=== PATIENT | female | born 1950 | race Caucasian/White ===

== ENCOUNTER → 2016-06-12 | Outpatient (CLI) | payer OTHER ==
[~2016-06-12] MED LIST: ASPI-391 PO; CALC-279 PO; CHOL100027 PO; CLR10 PO; DVN/160 PO; GLUC15002 PO; HYDR25TA4 PO; MELA3TAB12 PO; NSNN50; NXM/40 PO; OMEG1200 PO; SERT1TAB68 PO; ZINC50TA3 PO
[2016-06-12 12:25] LABS: ALT/SGPT 35 U/L (12-78); AST/SGOT 21 U/L (15-37); BLOOD UREA NITROGEN 15 mg/dl (7-18); CALCIUM 8.9 mg/dl (8.5-10.1); CARBON DIOXIDE 27 mmol/L (21-32); CHLORIDE 105 mmol/L (98-107); GLUCOSE 102 mg/dl (70-99); POTASSIUM 3.7 mmol/L (3.5-5.1); SODIUM 142 mmol/L (136-145)
[2016-06-12 12:33] LABS: ALKALINE PHOSPHATASE 87 U/L (45-117); CHOLESTEROL 142 mg/dl (0-200); CHOLESTEROL/HDL RATIO 2.4; HDL CHOLESTEROL 60 mg/dl; LDL CHOLESTEROL CALCULATED 60 mg/dl; TRIGLYCERIDES 112 mg/dl (0-150); VERY LOW DENSITY LIPOPROT CALC 22 mg/dl
--- NOTE | 2016-06-18 13:39 | CODING QUERY MEDICAL NECESSITY ---
SUPPORTING DIAGNOSIS NEEDED A supporting diagnosis is required for the test/procedure performed on this patient in order for us to be reimbursed by the patient's insurance. Please provide a supporting diagnosis for the following test/procedure listed below next to the test name along with your signature. *If there is no additional diagnosis for this patient that would support the following test/procedure please document that below next to the test/procedure. Test(s)/Procedure(s) that require a supporting diagnosis: * VITAMIN B-12 LEVEL DIAGNOSIS: * DOS: 06/12/16 Provider Signature: Date: Thank you Magdalena [facility] Once completed, please kindly fax back to [phone] For questions please call [phone]
== END | disposition home or self-care (01) ==
LOC: C.LAB1850 11:06
PROVIDERS: ATTEND Internal Medicine
DX: E78.5 Hyperlipidemia, unspecified (principal); R68.89 Other general symptoms and signs

== ENCOUNTER → 2016-11-14 | Outpatient (CLI) | payer OTHER | END | disposition home or self-care (01) | LOC: C.MAMM 08:58 | PROVIDERS: ATTEND Internal Medicine | DX: M85.852 Other specified disorders of bone density and structure, left thigh (principal) ==

== ENCOUNTER → 2016-11-22 | Outpatient (CLI) | payer OTHER ==
--- NOTE | 2016-11-22 14:31 | MAMMOGRAPHY REPORT ---
BILATERAL DIGITAL SCREENING MAMMOGRAM WITH CAD: 11/22/2016 CLINICAL HISTORY: Routine screening. TECHNIQUE: Current study was also evaluated with a Computer Aided Detection (CAD) system. Bilateral CC and MLO views were obtained. COMPARISON: Comparison is made to exams dated: 11/21/2015 mammogram, 11/18/2014 mammogram, 11/17/2013 m ammogram, 11/10/2012 mammogram, 11/06/2011 mammogram, and 10/15/2010 mammogram - [facility]. BREAST COMPOSITION: There are scattered areas of fibroglandular density in both breasts. FINDINGS: No suspicious masses, calcifications, or areas of architectural distortion are noted in ei ther breast. There has been no significant interval change compared to prior exams. IMPRESSION: ACR BI-RADS CATEGORY 1: NEGATIVE There is no mammographic evidence of malignancy. A 1 year screening mammogram is recommended. The pa tient will receive written notification of the results. Approximately 10% of breast cancers are not detected with mammography. A negative mammographic report should not delay biopsy if a clinically suggestive mass is present. Sadaf Carson M.D. ah/:11/22/2016 11:01:14 End Stapler: Aleksey Byrd RT(R)(M), [facility] letter sent: Normal 1/2 BI-RADS Code: ACR BI-RADS Category 1: Negative
== END | disposition home or self-care (01) ==
LOC: C.MAMM 10:20
PROVIDERS: ATTEND Internal Medicine
DX: Z12.31 Encounter for screening mammogram for malignant neoplasm of breast (principal)

== ENCOUNTER → 2017-03-05 | Outpatient (CLI) | payer OTHER ==
[2017-03-05 16:24] LABS: ALT/SGPT 29 U/L (12-78); AST/SGOT 18 U/L (15-37); BLOOD UREA NITROGEN 11 mg/dl (7-18); BUN/CREATININE RATIO 11.3 (10-20); CALCIUM 9.2 mg/dl (8.5-10.1); CARBON DIOXIDE 29 mmol/L (21-32); CHLORIDE 104 mmol/L (98-107); CREATININE 0.99 mg/dl (0.60-1.20); GLUCOSE 99 mg/dl (70-99); MAGNESIUM 2.3 mg/dl (1.8-2.4); POTASSIUM 3.5 mmol/L (3.5-5.1); SODIUM 138 mmol/L (136-145)
[2017-03-05 16:35] LABS: ALB/GLOB RATIO 0.9 (0.9-2); ALKALINE PHOSPHATASE 97 U/L (45-117)
== END | disposition home or self-care (01) ==
LOC: C.LAB1850 14:54
PROVIDERS: ATTEND Internal Medicine
DX: I10 Essential (primary) hypertension (principal); R68.89 Other general symptoms and signs

== ENCOUNTER → 2017-04-03 | Outpatient (CLI) | payer OTHER ==
--- NOTE | 2017-04-03 12:49 | DIAGNOSTIC IMAGING REPORT ---
L KNEE 3 VIEWS CLINICAL HISTORY: M25.562 Left knee [id number] COMPARISON: None. DISCUSSION: The bones and joint spaces appear intact. There is no evidence of fracture, dislocation or bony disease. There is no evidence for soft tissue swelling. IMPRESSION: Negative study. The above report was generated using voice recognition software. It may contain grammatical, syntax or spelling errors. Electronically signed by: Lui Martins M.D. 04/03/2017 12:47 PM Dictated Date/Time: 04/03/2017 12:29 PM
== END | disposition home or self-care (01) ==
LOC: C.RAD1850 12:17
PROVIDERS: ATTEND Nurse Practitioner Adult Health
DX: M25.562 Pain in left knee (principal)

== ENCOUNTER → 2017-10-30 | Day surgery (SDC) | payer OTHER ==
[2017-10-23 08:25] VITALS: Ht 154.9 cm; Wt 97.7 kg
[~2017-10-30] VITALS: Ht 154.9 cm; Wt 97.7 kg
[~2017-10-30] MED LIST changes: +ACET300T3 PO; +ATOR-22 PO; +CYAN500T13 PO; +CYCL10TA6 PO; +FLUT50SP45 NAE; +LIDOCAINE HCL 2% 2 ML VIAL (20MG/ML) ONE; -MELA3TAB12 PO; +MELA5CAP PO; +MELO7.5T5 PO; +MULT-506 PO; -NSNN50; -NXM/40 PO; +OMEP-331 PO; +PROPOFOL IV EMULSION 10 MG/ML 20 ML VIAL ONE; +SERT25TA PO; +SODIUM CHLORIDE 0.9% 500ML 500 ML IV ONE
--- NOTE | 2017-10-30 13:05 | Endo History and Physical ---
History & Physical Date of Service: Oct 30, 2017. Chief Complaint: Hx of polyps Referring Physician: Dr Lewis History of Present Illness 67 yo CF who presents for colonoscopy secondary to history of colon polyps. Past Surgical History Hx Cardiac Surgery: No Hx Internal Defibrillator: No Hx Pacemaker: No Hx Abdominal Surgery: Yes (ROBERTEY, LEELA, C-SECTIONS X3) Hx of Implantable Prosthesis: No Hx Post-Op Nausea and Vomiting: No Hx Cancer Surgery: No Hx Thoracic Surgery: No Hx Orthopedic: No Hx Urinary Tract Surgery: No Family History Colon CA, Polyp Social History Smoking Status: Former Smoker Hx Substance Use: No Hx Alcohol Use: Yes (SOCIALLY) Allergies Coded Allergies: NO KNOWN DRUG ALLERGIES (Verified Allergy, Unknown, ., 10/23/17) Uncoded Allergies: HAYFEVER (Allergy, Unknown, 05/20/02) Current Medications Reported Home Medications Medications Dose Route/Sig Max Daily Dose Days Date Category Dose Instructions Multivitamin (Multivitamins) Tab 1 Tab PO DAILY 10/23/17 Reported Mobic (Meloxicam) 7.5 Mg Tab 7.5 Mg PO DAILY PRN 10/23/17 Reported Flexeril (Cyclobenzaprine Hcl) 10 Mg Tab 10 Mg PO HS PRN 10/23/17 Reported Lipitor (Atorvastatin Calcium) 20 Mg Tab 20 Mg PO HS 10/23/17 Reported Allergy Nasal [place] 24 Ho (Fluticasone Propionate (Nasal)) 50 Mcg/Act Spr 1 [place] DEBI BID 10/23/17 Reported Tylenol W/Codeine #3 (Acetaminophen/Codeine Phosphate) 300 Mg/30 Mg Tab 1 Tab PO DAILY PRN 10/23/17 Reported Vitamin B12 500MCG (Cyanocobalamin) 500 Mcg Tab 500 Mcg PO QAM 10/23/17 Reported Zoloft (Sertraline HCl) 25 Mg Tab 25 Mg PO QAM 10/23/17 Reported FOR A TOTAL DOSE OF 125MG IN AM Melatonin 5 Mg Cap 5 Mg PO HS PRN 10/23/[address] (Omeprazole) 20 Mg Cap 20 Mg PO QAM 10/23/17 Reported Excedrin Extra Strength (Mmixjei-Kvsthgvvrnklm-Rtvrrbym) 1 Tab Tab 1-2 Tab PO PRN 12/28/13 Reported Zinc 50 Mg Tab 50 Mg PO QAM 12/28/13 Reported Vitamin D 1000 Unit (Cholecalciferol) 1,000 Unit Cap 2,000-4,000 Inter.unit PO DAILY 12/28/13 Reported Claritin (Loratadine) 10 Mg Tab 10 Mg PO QAM 12/28/13 Reported Glucosamine 1500 Complex (Depxnmnychf-Crnokfnthos-Dqz C-) 1 Cap Cap 1 Cap PO BID 12/28/13 Reported Fish Oil ([place]-3 Fatty Acids) 1 Cap Cap 1 Cap PO BID 12/28/13 Reported Zoloft (Sertraline Hcl) 100 Mg Tab 100 Mg PO QAM 12/28/13 Reported Hctz (Hydrochlorothiazide) 25 Mg Tab 25 Mg PO QAM 12/28/13 Reported Diovan (Valsartan) 160 Mg Tab 160 Mg PO QPM 12/28/13 Reported Calcium Citrate + D (Calcium Citrate-Vitamin D) 1 Tab Tab 1 Tab PO BID 12/28/13 Reported Vital Signs Weight (Kilograms): 97.73 Height (Feet): 5 Height (Inches): 1 Physical Exam General Appearance: WD/WN, no apparent distress Respiratory/Chest: Auscultation: breath sounds normal Cardiovascular: Heart Auscultation: RRR Abdomen: Bowel Sounds: normal Inspection & Palpation: soft, non-distended, no tenderness, guarding & rebound Assessment and Plan Assessment: 67 yo CF who presents for colonoscopy secondary to history of colon polyps. Plan: Proceed with colonoscopy.
--- NOTE | 2017-10-30 14:00 | Discharge Instructions ---
Endoscopy Patient Instructions Date / Procedure(s) Performed Oct 30, 2017. Colonoscopy Allergy Information Coded Allergies: NO KNOWN DRUG ALLERGIES (Verified Allergy, Unknown, ., 10/23/17) Uncoded Allergies: HAYFEVER (Allergy, Unknown, 05/20/02) Discharge Date / Findings Oct 30, 2017. Colon polyp Internal hemorrhoids Medication Instructions OK to resume all medications today as prescribed Reported Home Medications Medications Dose Route/Sig Max Daily Dose Days Date Category Dose Instructions Multivitamin (Multivitamins) Tab 1 Tab PO DAILY 10/23/17 Reported Mobic (Meloxicam) 7.5 Mg Tab 7.5 Mg PO DAILY PRN 10/23/17 Reported Flexeril (Cyclobenzaprine Hcl) 10 Mg Tab 10 Mg PO HS PRN 10/23/17 Reported Lipitor (Atorvastatin Calcium) 20 Mg Tab 20 Mg PO HS 10/23/17 Reported Allergy Nasal [place] 24 Ho (Fluticasone Propionate (Nasal)) 50 Mcg/Act Spr 1 [place] DEBI BID 10/23/17 Reported Tylenol W/Codeine #3 (Acetaminophen/Codeine Phosphate) 300 Mg/30 Mg Tab 1 Tab PO DAILY PRN 10/23/17 Reported Vitamin B12 500MCG (Cyanocobalamin) 500 Mcg Tab 500 Mcg PO QAM 10/23/17 Reported Zoloft (Sertraline HCl) 25 Mg Tab 25 Mg PO QAM 10/23/17 Reported FOR A TOTAL DOSE OF 125MG IN AM Melatonin 5 Mg Cap 5 Mg PO HS PRN 10/23/[address] (Omeprazole) 20 Mg Cap 20 Mg PO QAM 10/23/17 Reported Excedrin Extra Strength (Bqnfiop-Rqdzpqyhpdcsz-Wnhcrafg) 1 Tab Tab 1-2 Tab PO PRN 12/28/13 Reported Zinc 50 Mg Tab 50 Mg PO QAM 12/28/13 Reported Vitamin D 1000 Unit (Cholecalciferol) 1,000 Unit Cap 2,000-4,000 Inter.unit PO DAILY 12/28/13 Reported Claritin (Loratadine) 10 Mg Tab 10 Mg PO QAM 12/28/13 Reported Glucosamine 1500 Complex (Teajhpdiisu-Wpqwrnqpaek-Bhc C-) 1 Cap Cap 1 Cap PO BID 12/28/13 Reported Fish Oil ([place]-3 Fatty Acids) 1 Cap Cap 1 Cap PO BID 12/28/13 Reported Zoloft (Sertraline Hcl) 100 Mg Tab 100 Mg PO QAM 12/28/13 Reported Hctz (Hydrochlorothiazide) 25 Mg Tab 25 Mg PO QAM 12/28/13 Reported Diovan (Valsartan) 160 Mg Tab 160 Mg PO QPM 12/28/13 Reported Calcium Citrate + D (Calcium Citrate-Vitamin D) 1 Tab Tab 1 Tab PO BID 12/28/13 Reported Provider Instructions Activity Restrictions - No exercising or heavy lifting for 24 hours. - Do not drink alcohol the day of the procedure. - Do not drive a car or operate machinery until the day after the procedure. - Do not make any important decisions or sign important papers in 24 hours after the procedure. Following Day: - Return to full activity which may include returning to work/school. Diet Start your diet with liquids and light foods (jello, soup, juice, toast). Then eat your usual diet if not nauseated. Treatment For Common After Affects For mild abdominal pain, bloating, or excessive gas: - Rest - Eat lightly - Lie on right side Follow-Up Information Follow-up with Dr Lewis as scheduled Anesthesia Information What You Should Know You have had a procedure that required some medicine to reduce anxiety and discomfort. This treatment is called moderate sedation. After receiving the treatment, you may be sleepy, but you will be able to breathe on your own. The effects of the treatment may last for several hours. Follow these instructions along with Activity/Diet recommendations noted above: * Do NOT do anything where dizziness or clumsiness would be dangerous. * Rest quietly at home today, then you can be up and about tomorrow. * Have a responsible person stay with you the rest of today. * You may have had an I.V. today. If so, you may take the dressing off later today. Recommendations Call your doctor if: * Trouble breathing * Continuous vomiting for more than 24 hours * Temperature above 101 degrees * Severe abdominal pain or bloating * Pain not relieved by pain medicine ordered * There is increased drainage or redness from any incision * A large amount of rectal bleeding greater than 2-3 tablespoons. (If you had a polyp/s removed or have hemorrhoids, a small amount of blood - from the rectum is to be expected.) * You have any unanswered questions or concerns. IN THE EVENT OF A SERIOUS EMERGENCY, GO TO THE NEAREST EMERGENCY ROOM Your discharge instructions were prepared by provider Abel Beyer. Patient Instructions Signature Page Tiera Fernandez Patient (or Guardian) Signature/Date: I have read and understand the instructions given to me by my caregivers. Caregiver/RN/Doctor Signature/Date: The above-named patient and/or guardian has received patient instructions on this date. + Original Patient Signature Page (only) stays with chart. Please make copy for patient.
--- NOTE | 2017-10-30 14:08 | GI REPORT ---
Patient Name: Tiera Presley Procedure Date: 10/30/2017 1:34 PM Date of : 1950 Admit Type: Outpatient Age: 67 Gender: Female Attending MD: Abel Beyer DO Procedure: Colonoscopy Providers: Abel Beyer DO Referring MD: Tanmay Stewart Indications: High risk colon cancer surveillance: Personal history of colonic polyps Medicines: Monitored Anesthesia Care Complications: No immediate complications. Estimated Blood Loss: Estimated blood loss: none. Procedure: Pre-Anesthesia Assessment: - Prior to the procedure, a History and Physical was performed, and patient medications and allergies were reviewed. The patient's tolerance of previous anesthesia was also reviewed. The risks and benefits of the procedure and the sedation options and risks were discussed with the patient. All questions were answered, and informed consent was obtained. Prior Anticoagulants: The patient has taken no previous anticoagulant or antiplatelet agents. ASA Grade Assessment: III - A patient with severe systemic disease. After reviewing the risks and benefits, the patient was deemed in satisfactory condition to undergo the procedure. After I obtained informed consent, the scope was passed under direct vision. Throughout the procedure, the patient's blood pressure, pulse, and oxygen saturations were monitored continuously. The scope was introduced through the anus and advanced to the cecum, identified by appendiceal orifice and ileocecal valve. The colonoscopy was technically difficult and complex due to restricted mobility of the colon. Successful completion of the procedure was aided by changing the patient to a supine position. The patient tolerated the procedure well. The quality of the bowel preparation was good. The ileocecal valve, appendiceal orifice, and rectum were photographed. Findings: The perianal and digital rectal examinations were normal. A 3 mm polyp was found in the cecum. The polyp was sessile. The polyp was removed with a cold biopsy forceps. Resection and retrieval were complete. Non-bleeding internal hemorrhoids were found during retroflexion. The hemorrhoids were small. Impression: - One 3 mm polyp in the cecum, removed with a cold biopsy forceps. Resected and retrieved. - Non-bleeding internal hemorrhoids. Recommendation: - Resume previous diet. - Continue present medications. - Repeat colonoscopy for surveillance based on pathology results. - Return to primary care physician as previously scheduled. Abel Beyer DO 10/30/2017 2:08:20 PM This report has been signed electronically. Note Initiated On: 10/30/2017 1:34 PM Number of Addenda: 0 I attest to the content of the Intraoperative Record and orders documented therein, exceptions below {[id number]}
--- NOTE | 2017-10-30 14:25 | Anesthesiology Progress Note ---
Anesthesia Post Op Note Date & Time Oct 30, 2017 at 14:25 Vital Signs Pain Intensity: 0 Vital Signs Past 12 Hours Date Time Temp Pulse Resp B/P (MAP) Pulse Ox O2 Delivery O2 Flow Rate FiO2 10/30/17 14:16 62 18 129/85 (100) 94 Room Air 10/30/17 14:01 62 16 107/84 (92) 94 Room Air 10/30/17 13:02 36.9 70 18 126/75 (92) 94 Room Air Notes Mental Status: alert / awake / arousable, participated in evaluation Pt Amnestic to Procedure: Yes Nausea / Vomiting: adequately controlled Pain: adequately controlled Airway Patency, RR, SpO2: stable & adequate BP & HR: stable & adequate Hydration State: stable & adequate Anesthetic Complications: no major complications apparent
[2017-10-30 14:31] VITALS: BP 145/66; PULSE 64; O2SAT 95
== END | disposition home or self-care (01) ==
LOC: C.GI 12:31
PROVIDERS: ATTEND Internal Medicine
DX: Z12.11 Encounter for screening for malignant neoplasm of colon (principal); K64.8 Other hemorrhoids; K21.9 Gastro-esophageal reflux disease without esophagitis; M19.90 Unspecified osteoarthritis, unspecified site; E66.9 Obesity, unspecified; I10 Essential (primary) hypertension; F41.9 Anxiety disorder, unspecified; F32.9 Major depressive disorder, single episode, unspecified; Z86.010 Personal history of colon polyps; Z98.890 Other specified postprocedural states; Z80.0 Family history of malignant neoplasm of digestive organs; Z87.891 Personal history of nicotine dependence; Z79.899 Other long term (current) drug therapy

== ENCOUNTER → 2017-11-26 | Outpatient (CLI) | payer OTHER ==
[~2017-11-26] MED LIST changes: -LIDOCAINE HCL 2% 2 ML VIAL (20MG/ML) ONE; -PROPOFOL IV EMULSION 10 MG/ML 20 ML VIAL ONE; -SODIUM CHLORIDE 0.9% 500ML 500 ML IV ONE
--- NOTE | 2017-11-26 13:37 | MAMMOGRAPHY REPORT ---
BILATERAL DIGITAL SCREENING MAMMOGRAM TOMOSYNTHESIS WITH CAD: 11/26/2017 CLINICAL HISTORY: Routine screening. TECHNIQUE: Breast tomosynthesis in addition to standard 2D mammography was performed. Current study w as also evaluated with a Computer Aided Detection (CAD) system. COMPARISON: Comparison is made to exams dated: 11/22/2016 mammogram, 11/21/2015 mammogram, 11/18/2014 m ammogram, 11/17/2013 mammogram, 11/10/2012 mammogram, and 11/06/2011 mammogram - [facility]. BREAST COMPOSITION: There are scattered areas of fibroglandular density in both breasts. FINDINGS: No suspicious masses, calcifications, or areas of architectural distortion are noted in either breast . There has been no significant interval change compared to prior exams. IMPRESSION: ACR BI-RADS CATEGORY 1: NEGATIVE There is no mammographic evidence of malignancy. A 1 year screening mammogram is recommended.( [id number]) The patient will receive written notification of the results. Some breast cancers are not detected with mammography. A negative mammographic report should not jason y biopsy if a clinically suggestive mass is present. Sadaf Carson M.D. ah/:11/26/2017 10:32:14 [employer] Libr[employer]: RT aBrak(Jarvis)(M), [facility] letter sent: Normal 1/2 BI-RADS Code: ACR BI-RADS Category 1: Negative
== END | disposition home or self-care (01) ==
LOC: C.MAMM 09:56
PROVIDERS: ATTEND Internal Medicine
DX: Z12.31 Encounter for screening mammogram for malignant neoplasm of breast (principal)